=== PATIENT | female | born 1970 | race Asian ===

== ENCOUNTER → 2018-07-18 12:31 | Outpatient (CLI) | payer OTHER, SELFPAY ==
[2018-07-18 14:32] LABS: Free T3 2.8 pg/mL (2.18-3.98); Thyroid Stim Hormone (TSH) 1.05 uIU/mL (0.358-3.74)
== END ==
PROVIDERS: Family Provider Family Medicine; PCP Family Medicine; Referring Provider Family Medicine; Visit Provider Family Medicine
DX: E05.90 Thyrotoxicosis, unspecified without thyrotoxic crisis or storm (principal)
CPT/HCPCS: 36415; 84439; 84443; 84481